=== PATIENT | female | born 1970 | race Caucasian/White ===

== ENCOUNTER 2018-01-12 09:24 | Outpatient (CLI) | payer OTHER ==
--- NOTE | 2018-01-12 10:38 | RAD ---
CHEST 2 VIEWS: HISTORY: Dyspnea. COMPARISON: 05/23/16. FINDINGS: Cardiac silhouette and pulmonary vasculature are unremarkable. Mediastinum is midline. There is no confluent airspace consolidation, pneumothorax, or pleural fluid evident. IMPRESSION: No active cardiopulmonary abnormalities are demonstrated. POS: [facility]
== END 2018-01-12 09:25 | disposition home or self-care (01) ==
LOC: RAD 09:24
PROVIDERS: ATTEND Internal Medicine Critical Care Medicine
DX: R06.00 Dyspnea, unspecified (principal)
CPT/HCPCS: 71046

== ENCOUNTER 2019-06-13 18:01 | Emergency (ER) | payer OTHER ==
[2019-06-13 18:48] LABS: Bilirubin Negative (Negative); Blood, Urine Negative (Negative); Clarity Clear (Clear); Glucose, Urine (Dipstick) Negative (Negative); Leukocyte Negative (Negative); Nitrite Negative (Negative); Protein, Urine (Dipstick) Negative (Neg-Trace); Urobilinogen 0.2 mg/dL (Less than 2)
[2019-06-13 19:21] LABS: #Basophils 0.1 thou/uL (0.0-0.2); #Eosinphils 0.1 thou/uL (0.0-0.7); #Lymphocytes 3.6 thou/uL (1.20-3.40); #Monocytes 0.7 thou/uL (0.11-0.59); #Neutrophils 5.3 thou/uL (1.40-6.50); %Basophils 1.3 % (0.0-1.0); %Eosinophils 0.5 % (0.0-10.0); %Lymphocytes 36.8 % (21.0-51.0); %Monocytes 7.4 % (0.0-10.0); %Neutrophils 53.9 % (42.0-75.0); Hemoglobin 14.8 g/dL (12.0-16.0); Mean Corpuscular HGB CONC 34.3 g/dL (32.0-36.0); Mean Corpuscular Hemoglobin 30.2 pg (27.0-31.0); Mean Corpuscular Volume 88.1 fL (78.0-98.0); Mean Platelet Volume 7.4 fL (7.4-10.4); Platelet Count 290 thou/uL (130-400); RBC Distribution Width 11.5 % (11.5-14.5); Red Blood Cell (RBC) Count 4.91 mill/uL (4.20-5.40); White Blood Cell (WBC) Count 9.9 thou/uL (4.8-10.8)
[2019-06-13 19:22] LABS: BHCG - Serum Negative (NEGATIVE); Pregs Control Background? CLEAR/WHITE (CLR/WHITE); Pregs Control Bar Appear? YES (CONTROL BAR)
[2019-06-13 19:34] LABS: ALT (SGPT) 31 U/L (8-55); AST (SGOT) 21 U/L (5-34); Albumin 4.1 g/dL (3.5-5.0); Alkaline Phosphatase 61 U/L (40-150); Anion Gap 15 mmol/L (10-20); BUN (Urea Nitrogen) 10 mg/dL (7.0-18.7); Bilirubin, Total 0.4 mg/dL (0.2-1.2); Calc. Creatinine Clearance 0 mL/min (70-130); Calcium 9.9 mg/dL (7.8-10.44); Carbon Dioxide 24 mmol/L (22-29); Chloride 104 mmol/L (98-107); Estimated GFR-MDRD 62; Glucose 97 mg/dL (70-105); Lipase 26 U/L (8-78); Potassium 3.3 mmol/L (3.5-5.1); Protein, Total 7.1 g/dL (6.0-8.3); Sodium 140 mmol/L (136-145)
--- NOTE | 2019-06-13 20:49 | CT ---
CT of abdomen and pelvis: 06/13/2019 COMPARISON: None HISTORY: Right flank pain TECHNIQUE: Axial CT imaging at 5 mm intervals from lung bases through pubic symphysis without contras t. Coronal reformatted imaging obtained. FINDINGS: Lack of contrast media limits assessment of the viscera, bowel, vascular structures, and fo r lymphadenopathy. The visualized lung bases demonstrate no acute findings. There is a granuloma within the inferior asp ect of the left lower lobe measuring 1.6 cm. No free intraperitoneal air. The hepatic parenchyma is diffusely hypodense, suggesting steatosis. The spleen, gallbladder, and pineda creas are grossly unremarkable. The adrenal glands are grossly unremarkable as well. There is a lesion just deep to the skin within the subcutaneous adipose layer anteriorly on image 40 with internal Hounsfield units suggesting a sebaceous cyst, measuring 1.9 cm in transverse dimension. There is no nephrolithiasis or evidence of hydronephrosis on the left. There is a low-density lesion involving the upper pole of the right kidney measuring approximately 3. 4 cm. Along its inferior margin, best seen on axial image 31 and coronal image 82 there appears to be hyperdense material, possibly debris or calcification. These findings suggest a nonspecific comple x cyst. 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 No evidence for nephrolithiasis or obstructive uropathy is appreciated on the right. No evidence for bowel obstruction. The appendix is unremarkable. No acute osseous abnormality. There is degenerative change at the lumbosacral junction. IMPRESSION: No nephrolithiasis or obstructive uropathy. No evidence for bowel obstruction or appendic itis. There is a probable complex cyst involving the upper pole of the right kidney. Recommend follow-up CT of the abdomen with and without contrast using a renal mass protocol on a nonemergent basis. ARSH T.
[2019-06-13] MEDS ORDERED: Acetaminophen 500 MG TAB ONE (21:07)
== END 2019-06-13 21:11 | disposition home or self-care (01) ==
LOC: SCSER 18:01
DX: D17.71 Benign lipomatous neoplasm of kidney (principal); R03.0 Elevated blood-pressure reading, without diagnosis of hypertension; J45.909 Unspecified asthma, uncomplicated; Z79.899 Other long term (current) drug therapy; Z79.51 Long term (current) use of inhaled steroids
CPT/HCPCS: 36415; 74176; 80053; 81003; 83690; 84703; 85025

== ENCOUNTER 2019-06-28 10:24 | Outpatient (CLI) | payer OTHER ==
[~2019-06-28 10:24] MED LIST: Iopamidol 370 76% 100 ML VIAL ONE
--- NOTE | 2019-06-28 14:30 | CT ---
CT ABDOMEN WITH AND WITHOUT COTNRAST: Axial tomograms were obtained pre and post IV contrast. Post contrast images obtained in a portal ve nous and delayed phase. INDICATION: Complex cyst noted in the right kidney on recent noncontrast CT of 06/13/2019. Correlation is made to that study. FINDINGS: Liver, spleen, and pancreas appear unremarkable. Adrenal glands appear normal. Review of the kidneys reveals an irregularly shaped cystic lesion involving the upper pole of the rig ht kidney measuring approximately 3.3 cm craniocaudal in the coronal plane. This lesion is mildly co mplex. There is increased density along its medial margin on the noncontrast study and there is evid ence of septation and possibly partial enhancement seen along the posterior margin on postcontrast im ages. This lesion will need to be followed to confirm stability. Kidneys are otherwise unremarkable. There is a 1 cm low-density lesion in the more inferior right re nal cortex which exhibits fat density Hounsfield units. This would be consistent with a small angiom yelipoma. Visualized bowel loops unremarkable. Appendix is visualized and is unremarkable. Aorta is normal ca liber. In the subcutaneous tissues of the mid abdomen just under the skin superior to the umbilicus is a nod ular density measuring approximately 2 cm. This could represent a sebaceous cyst or other subcutaneo us lesion. Recommend clinical correlation. IMPRESSION: 1. Irregularly shaped complex cystic mass in the superior right kidney. Recommend urologic consulta tion. Suggest followup CT abdomen with and without contrast in 6 months to confirm stability. 2. 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 3. Subcutaneous nodular density just beneath the skin in the anterior abdomen midline just above the umbilicus. POS: [facility]
== END 2019-06-28 10:25 | disposition home or self-care (01) ==
LOC: SCSCT 10:24
PROVIDERS: ATTEND Family Medicine Sports Medicine
DX: N28.89 Other specified disorders of kidney and ureter (principal); D17.71 Benign lipomatous neoplasm of kidney
CPT/HCPCS: 74170; Q9967

== ENCOUNTER 2020-03-14 08:27 | Outpatient (CLI) | payer OTHER ==
--- NOTE | 2020-03-14 10:48 | CT ---
CT of the abdomen with and without contrast INDICATION: 41-year-old female with history of renal mass COMPARISON: CT examinations of the abdomen and pelvis dated June 28, 2019 and June 13, 2019 TECHNIQUE: Axial noncontrast CT the abdomen, nephrographic phase axial CT the abdomen and delayed pha se axial CT of the abdomen were obtained. Sagittal and coronal reformats were constructed from the delayed phase imaging series. FINDINGS: Kidneys: The complex cystic lesion involving the superior pole of the right kidney measures 2.7 x 3.0 x 3.8 cm where previously this lesion measured 3.0 x 2.8 x 3.7 cm. There are thin internal enhancing septations involving the lesion. These are not appreciably changed from the most recent com parison dated June 28, 2019. The small angiomyolipoma involving the mid to lower right kidney is stable measuring 7 mm. No focal lesion is seen involving the left kidney. Liver: No suspicious abnormality. Gallbladder: Normal. Pancreas: Normal. Adrenal glands: Normal. Spleen: Normal. Retroperitoneum: No enlarged lymph nodes. Vasculature: Normal. Visualized small and large bowel: Normal. Soft tissues: The small nodular density involving the subcutaneous tissues of the anterior abdomen, s uperjacent to the umbilicus is stable measuring 2 cm. This may reflect a prominent sebaceous cyst. Recommend correlation. Malignant skin lesion cannot be entirely excluded. Osseous structures: No acute osseous abnormality. IMPRESSION: 1. Stable complex cystic lesion involving the superior pole the right kidney with thin internal enhan cing septations. Findings are most suspicious for a Bosniak 2F cystic lesion. Continued follow-up is recommended. 2. Stable angiomyolipoma of the mid to lower right kidney. 3. Stable subcutaneous nodular lesion involving the anterior abdominal wall. Recommend correlation wi th the clinical exam.
[2020-03-14 11:30] LABS: Bacteria/HPF None Seen HPF (None Seen); Bilirubin Negative (Negative); Blood, Urine 3+ (Negative); Clarity Clear (Clear); Glucose, Urine (Dipstick) Normal (Negative); Leukocyte Negative Leu/uL (Negative); Nitrite Negative (Negative); Protein, Urine (Dipstick) Negative (Neg-Trace); RBC/HPF 0-3 HPF (0-3); Squamous Epithelial 0-3 HPF (0-3); Urobilinogen Normal mg/dL (Less than 2); WBC/HPF 0-3 HPF (0-3)
[2020-03-14 11:37] LABS: Anion Gap 12 mmol/L (10-20); BUN (Urea Nitrogen) 16 mg/dL (7.0-18.7); Calc. Creatinine Clearance 0 mL/min (70-130); Calcium 9.5 mg/dL (7.8-10.44); Carbon Dioxide 27 mmol/L (22-29); Chloride 104 mmol/L (98-107); Estimated GFR-MDRD 57; Glucose 91 mg/dL (70-105); Potassium 3.8 mmol/L (3.5-5.1); Sodium 139 mmol/L (136-145)
== END 2020-03-14 08:28 | disposition home or self-care (01) ==
LOC: SCSCT 08:27
PROVIDERS: ATTEND Urology
DX: D17.71 Benign lipomatous neoplasm of kidney (principal); N28.1 Cyst of kidney, acquired; R35.0 Frequency of micturition; N28.89 Other specified disorders of kidney and ureter; L98.8 Other specified disorders of the skin and subcutaneous tissue
CPT/HCPCS: 74178; 80048; 81003; 81015

== ENCOUNTER 2020-09-20 08:12 | Outpatient (CLI) | payer OTHER ==
--- NOTE | 2020-09-20 09:42 | CT ---
CT ABDOMEN WITH AND WITHOUT IV CONTRAST 09/20/2020 CLINICAL INFORMATION: 6 month follow-up evaluation for cystic lesion right kidney. COMPARISON: 03/14/2020 and 06/28/2019 Technique: Multiple contiguous axial CT images are obtained through the abdomen and pelvis with IV contrast. Cor onal reformatted images are provided. FINDINGS: Lower Chest: Minimal atelectasis present at the medial right lung base. Calcified granuloma seen at t he left lung base. Vessels: Abdominal aorta is normal in caliber thousand aortic dissection. Again noted is a retroaorti c left renal vein. Abdomen: Portal vein:Patent Gallbladder: Minimal increased density is seen in the gallbladder lumen which could be related to gal lbladder calculi or sludge. Liver: within normal limits. Spleen: within normal limits. Pancreas: within normal limits. Adrenals: within normal limits. Kidneys: Previously described complex cystic lesion in the superior pole right kidney is again seen a nd measures 3.7 cm x 2.9 cm x 2.9 cm with measurement on prior study in 2019 of 3.6 cm x 3 cm x 2.9 cm in similar planes of measurement. Measurements are also unchanged compared to study on 03/14/2020. Previously mentioned thin internal enhancing septation is again present. There is area of increased density at the more inferior medial margin of this cystic lesion which is stable compared to prior st udies and is also seen on a nonenhanced CT abdomen on 06/13/2019. This hyperdense area may be related to calcification along the inferior margin. A stable subcentimeter angiomyolipoma seen involving the inferior pole right kidney. Left kidney demonstrates a normal CT appearance. Bowel: Normal caliber. Appendix: The appendix is visualized and normal in caliber. Peritoneum: No ascites or free air; no fluid collection. Mesentery and Retroperitoneum: No enlarged mesenteric or retroperitoneal lymph nodes. Abdominal Wall: Previously described small nodular density in the subcutaneous adipose layer anterior abdominal wall just to the right of midline is again present and unchanged in size or appearance measuring 1.9 cm, and this may represent a small sebaceous cyst. Bones: Degenerative changes are seen in the lumbar spine. No suspicious lytic or sclerotic osseous le sions are identified. IMPRESSION: 1. Stable right renal Bosniak type II F cystic lesion. Continued follow-up is recommended. 2. Stable right renal angiomyolipoma. 3. Stable subcutaneous nodule anterior abdominal wall. This is just beneath the skin surface.
== END 2020-09-20 08:13 | disposition home or self-care (01) ==
LOC: CT 08:12
PROVIDERS: ATTEND Urology
DX: D17.71 Benign lipomatous neoplasm of kidney (principal); N28.1 Cyst of kidney, acquired; R35.0 Frequency of micturition; Z88.8 Allergy status to other drugs, medicaments and biological substances; R22.2 Localized swelling, mass and lump, trunk
CPT/HCPCS: 74170

== ENCOUNTER 2021-09-26 13:18 | Outpatient (CLI) | payer BC | END 2021-09-26 13:19 | disposition home or self-care (01) | LOC: ULT 13:18 | PROVIDERS: ATTEND Urology | DX: N28.1 Cyst of kidney, acquired (principal); D30.01 Benign neoplasm of right kidney | CPT/HCPCS: 76770 ==

== ENCOUNTER 2022-02-26 20:38 | Emergency (ER) | payer BC ==
[2022-02-26 21:09] LABS: #Basophils 0.1 thou/uL (0.0-0.2); #Lymphocytes 1.9 thou/uL (1.20-3.40); #Monocytes 0.5 thou/uL (0.11-0.59); #Neutrophils 5.3 thou/uL (1.40-6.50); %Basophils 0.7 % (0.0-1.0); %Eosinophils 0.6 % (0.0-10.0); %Lymphocytes 24.5 % (21.0-51.0); %Monocytes 6.7 % (0.0-10.0); %Neutrophils 67.5 % (42.0-75.0); Hemoglobin 14.7 g/dL (12.0-16.0); Mean Corpuscular HGB CONC 33.9 g/dL (32.0-36.0); Mean Corpuscular Hemoglobin 31.1 pg (27.0-31.0); Mean Corpuscular Volume 91.9 fL (78.0-98.0); Platelet Count 266 thou/uL (130-400); RBC Distribution Width 11.9 % (11.5-14.5); Red Blood Cell (RBC) Count 4.74 mill/uL (4.20-5.40); White Blood Cell (WBC) Count 7.8 thou/uL (4.8-10.8)
[2022-02-26 21:30] LABS: ALT (SGPT) 24 U/L (8-55); AST (SGOT) 26 U/L (5-34); Albumin 4.2 g/dL (3.5-5.0); Alkaline Phosphatase 63 U/L (40-110); Anion Gap 14 mmol/L (10-20); BUN (Urea Nitrogen) 9 mg/dL (7.0-18.7); Bilirubin, Total 0.7 mg/dL (0.2-1.2); CK (CPK) 205 U/L (29-168); Calc. Creatinine Clearance 0 mL/min (70-130); Calcium 9.5 mg/dL (7.8-10.44); Carbon Dioxide 26 mmol/L (22-29); Globulin 3.1 g/dL (2.4-3.5); Glucose 96 mg/dL (70-105); Lipase 36 U/L (8-78); Potassium 3.5 mmol/L (3.5-5.1); Protein, Total 7.3 g/dL (6.0-8.3)
[2022-02-26 21:59] LABS: BHCG - Serum Negative (NEGATIVE); Pregs Control Background? CLEAR/WHITE (CLR/WHITE); Pregs Control Bar Appear? YES (CONTROL BAR)
[2022-02-26 22:07] LABS: Bilirubin Negative (Negative); Blood, Urine Negative (Negative); Clarity Clear (Clear); Glucose, Urine (Dipstick) Normal (Negative); Ketone, Urine Negative (Negative); Leukocyte Negative Leu/uL (Negative); Nitrite Negative (Negative); Protein, Urine (Dipstick) Negative (Neg-Trace); Specific Gravity, Urine 1.005 (1.002-1.036); Urobilinogen Normal mg/dL (Less than 2); pH, Urine 6.5 (5.0-9.0)
[2022-02-26 22:42] LABS: Chloride 102 mmol/L (98-107); Sodium 138 mmol/L (136-145)
== END 2022-02-26 22:28 | disposition home or self-care (01) ==
LOC: ERS 20:38
DX: E86.0 Dehydration (principal); R51.9 Headache, unspecified; I10 Essential (primary) hypertension
CPT/HCPCS: 36415; 70450; 80053; 81003; 82550; 83690; 84484; 84703; 85025; 93005; 96360

== ENCOUNTER 2022-10-21 13:33 | Outpatient (CLI) | payer BC | END 2022-10-21 13:34 | disposition home or self-care (01) | LOC: ULT 13:33 | PROVIDERS: ATTEND Urology | DX: D30.01 Benign neoplasm of right kidney (principal); N28.1 Cyst of kidney, acquired; N28.9 Disorder of kidney and ureter, unspecified | CPT/HCPCS: 76770 ==

== ENCOUNTER 2025-07-07 10:34 | Emergency (ER) | payer BC ==
[2025-07-07 11:18] LABS: Bacteria/HPF None Seen HPF (None Seen); CAUTI Indications for Culture Dysuria,urgency,freq; Glucose, Urine (Dipstick) Normal (Negative); Leukocyte Negative Leu/uL (Negative); Protein, Urine (Dipstick) Negative (Neg-Trace); RBC/HPF None Seen HPF (0-3); Specific Gravity, Urine 1.003 (1.002-1.036); WBC/HPF 0-3 HPF (0-3)
[2025-07-07 11:19] LABS: Urine Culture Reflex No No
[2025-07-07 12:32] LABS: #Basophils 0.07 10x3/uL (0.0-0.2); #Eosinophils 0.14 10x3/uL (0.0-0.7); #Monocytes 0.50 10x3/uL (0.11-0.59); #Neutrophils 5.38 10x3/uL (1.40-6.50); %Basophils 0.9 % (0.0-1.0); %Eosinophils 1.7 % (0.0-10.0); %Lymphocytes 24.2 % (21.0-51.0); %Monocytes 6.2 % (0.0-10.0); %Neutrophils 66.6 % (42.0-75.0); Hematocrit 46.2 % (36.0-47.0); Hemoglobin 15.4 g/dL (12.0-16.0); Mean Corpuscular Hemoglobin 29.5 pg (27.0-31.0); Mean Corpuscular Volume 88.5 fL (78.0-98.0); Platelet Count 257 10x3/uL (130-400); Red Blood Cell (RBC) Count 5.22 mill/uL (4.20-5.40); White Blood Cell (WBC) Count 8.07 10x3/uL (4.8-10.8)
[2025-07-07 12:53] LABS: ALT (SGPT) 48 U/L (Less than 34); AST (SGOT) 29 U/L (11-34); Albumin 4.2 g/dL (3.1-4.5); Alkaline Phosphatase 66 U/L (40-110); Anion Gap 12 mmol/L (10-20); BUN (Urea Nitrogen) 13 mg/dL (9.8-20.1); Bilirubin, Total 0.4 mg/dL (0.3-1.2); Calc. Creatinine Clearance 0 mL/min (70-130); Calcium 10.2 mg/dL (7.8-10.44); Carbon Dioxide 26 mmol/L (22-29); Chloride 106 mmol/L (98-107); Globulin 3.3 g/dL (2.4-3.5); Glucose 94 mg/dL (70-105); Potassium 4.4 mmol/L (3.5-5.1); Sodium 140 mmol/L (136-145)
[2025-07-07] MEDS ORDERED: diphenhydrAMINE 50 MG/ML VIAL ONE (12:55)
[2025-07-07] MEDS ORDERED: Famotidine/PF 20 mg/2ml Vial ONE (12:56)
== END 2025-07-07 15:44 | disposition home or self-care (01) ==
LOC: ERS 10:34
DX: N83.202 Unspecified ovarian cyst, left side (principal); N28.1 Cyst of kidney, acquired; R93.89 Abnormal findings on diagnostic imaging of other specified body structures; I10 Essential (primary) hypertension
CPT/HCPCS: 74177; 80053; 81001; 83690; 85025; 96374; 96375; J1200; J2919